=== PATIENT | male | born 1985 | race Caucasian/White ===

== ENCOUNTER 2016-12-11 18:55 | Emergency (ER) | payer BC ==
[~2016-12-11] VITALS: Ht 185.4 cm; Wt 81.8 kg
[~2016-12-11 18:55] MED LIST: HUMALOG100 UNIT/1 SC; HUMALOG100 UNIT/2 SQ; LEVEMIR100 UNIT/1 SQ; NOVOLIN N100 UNITS/ SC; NOVOLIN,HU100 UNITS1 SC; ZOFRAN ODT4 MG PO; ZOFRAN4 MG PO
[2016-12-11 19:16] LABS: POINT-OF-CARE METER ID UU13113778
[2016-12-11 19:19] LABS: HEMATOCRIT 42.2 % (38.0-50.0); MCH 32.3 PG (29.0-34.0); MCHC 35.8 G/DL (30.0-36.0); MCV 90.4 FL (86-99); PLATELET COUNT 218 K/uL (156-360); RBC DIS.WIDTH-CV 11.5 % (11.8-14.6); RBC DIS.WIDTH-SD 38.2 % (39-53); RED BLOOD COUNT 4.67 M/uL (4.00-5.50); WHITE BLOOD COUNT 10.7 K/uL (4.1-10.2)
[2016-12-11 19:32] LABS: CHLORIDE 104 mEq/L (99-109); POTASSIUM 4.6 mEq/L (3.7-5.4); SODIUM 141 mEq/L (136-147)
[2016-12-11 19:34] LABS: GLUCOSE 219 mg/dL (70-99)
[2016-12-11 19:35] LABS: ANION GAP 11 MEQ/L (2-14)
[2016-12-11 19:36] LABS: TOTAL BILIRUBIN 0.8 mg/dL (0.0-1.0)
[2016-12-11 19:38] LABS: ALKALINE PHOSPHATASE 99 IU/L (3-129); GFR ESTIMATE (CALCULATED) > 59 mL/min/
[2016-12-11 19:39] LABS: UREA NITROGEN (BUN) 25 mg/dL (9-23)
[2016-12-11 19:41] LABS: LIPASE 27 U/L (1.0-51.0)
[2016-12-11] MEDS ORDERED: PHENERGAN25 MG PR (21:21)
[2016-12-11] MEDS ORDERED: ZOFRAN4 MG PO (21:21)
[2016-12-11 21:27] LABS: ADD MIUA? YES; BILIRUBIN NEGATIVE; BLOOD SMALL; COLOR YELLOW ((YELLOW)); GLUCOSE (STRIP) >=500; KETONES 80; LEUKOCYTES NEGATIVE; NITRITE NEGATIVE; PROTEIN (STRIP) >=500; SPECIFIC GRAVITY 1.033 (1.000-1.030); UROBILINOGEN 0.2 MG/DL (0.2-1.0)
[2016-12-11 21:32] VITALS: BP 160/93
[2016-12-11 21:35] LABS: BACTERIA NONE SEEN /HPF; EPITHELIAL CELLS RARE /HPF; MUCUS TRACE /LPF; RED BLOOD CELLS TNTC /HPF (0-5); WHITE BLOOD CELLS 0-5 /HPF (0-5)
== END 2016-12-11 21:32 | disposition home or self-care (01) ==
LOC: EME 18:55
PROVIDERS: Physician Assistant
DX: R11.2 Nausea with vomiting, unspecified (principal); Z79.4 Long term (current) use of insulin; E11.9 Type 2 diabetes mellitus without complications; F17.200 Nicotine dependence, unspecified, uncomplicated; Z91.19 Patient's noncompliance with other medical treatment and regimen
CPT/HCPCS: 80053; 81003; 82948; 83690; 85027; 99281; 99284; J2405; J2550; J7030